=== PATIENT | male | born 1955 | race Caucasian/White ===

== ENCOUNTER → 2025-05-16 | Outpatient (CLI) | payer BC, SELFPAY ==
[2025-05-18 14:08] LABS: PSA, Free 0.54 ng/mL; PSA, Free % 10.7 % (.); PSA, Total Ultrasensitive 5.030 ng/mL (0.000-4.000)
== END | disposition home or self-care (01) ==
LOC: LAB 15:42
PROVIDERS: Referring Provider Urology; Visit Provider Urology
DX: R97.20 Elevated prostate specific antigen [PSA] (principal)
CPT/HCPCS: 36415; 84153; 84154

== ENCOUNTER → 2025-05-30 | Outpatient (CLI) | payer BC, SELFPAY ==
--- NOTE | 2025-05-30 13:01 | MRI_ITS ---
PROCEDURE: PELVIS W/WO CONTRAST, 05/30/2025 REASON FOR EXAM: ELEVATED PSA. Per technologist report, PSA was 5.030 on 05/16/2025. TECHNIQUE: Multisequence multiplanar MRI pelvis was performed with and without IV contrast. IV Contrast: 17 mL Clariscan COMPARISON: None FINDINGS: Variable overall mild motion limitation. Prostate size: 4.5 x 3.7 x 4.7 cm, estimated volume 40.7 mL. Per the above provided PSA, PSA density is 0.124 ng/mL. Transition zone: PI-RADS 2 findings. Peripheral Zone: Fairly prominent background changes of likely prostatitis making delineation of additional lesions somewhat challenging on T2: *Lesion 1: RIGHT posteromedial peripheral zone midgland to base, 1.4 cm (series 12, image 14-15). *T2 score: 4. *DWI score: 3. *DCE: Positive. *Overall PI-RADS: PI-RADS 4. *Extracapsular extension:No gross extracapsular extension, however, there is capsular abutment greater than 1 cm which increases the risk of occult early/microscopic extracapsular extension. Note that this includes the region of the RIGHT neurovascular bundle, which appears grossly unremarkable. *Lesion 2: LEFT mid posteromedial/posterolateral peripheral zone, 1.2 cm (series 12 images 17-18). *T2 score: 4. *DWI score: 3. *DCE: Positive. *Overall PI-RADS: PI-RADS 4. *Extracapsular extension:No gross extracapsular extension, however, there is capsular abutment greater than 1 cm which increases the risk of occult early/microscopic extracapsular extension. Note that this includes the region of the LEFT neurovascular bundle, which appears grossly unremarkable. *Lesion 3: RIGHT posteromedial/posterolateral peripheral zone apex, 1.0 cm (series 12, image 20). *T2 score: 4. *DWI score: 3. *DCE: Positive. *Overall PI-RADS: 4. *Extracapsular extension:No gross extracapsular extension, however, there is capsular abutment greater than 1 cm which increases the risk of occult early/microscopic extracapsular extension. Note that this includes the region of the RIGHT neurovascular bundle, which appears grossly unremarkable. Neurovascular bundles: As above. Seminal vesicles: Unremarkable. Bladder: Underdistended and suboptimally evaluated, grossly unremarkable. Lymph nodes: Unremarkable. Bones: No destructive or frankly suspicious bony lesions identified on nondedicated evaluation. Other: Small fat containing RIGHT inguinal hernia. Diverticulosis. Partially imaged lobulated cystic lesion in the LEFT scrotum spanning roughly 5.1 x 3.2 cm is partially imaged on most sequences but is favorable for a large epididymal cyst versus a loculated hydrocele. Smaller presumed RIGHT epididymal cyst measures 2.4 cm.. Partially imaged at least trace RIGHT hydrocele. LEFT inguinal hernia repair. MRI/Pelvis W/WO Contrast IMPRESSION: 1. Three peripheral zone PI-RADS 4 lesions, up to 1.4 cm on the RIGHT and 1.2 c m on the LEFT. 2. No gross extracapsular extension, however, there is capsular abutment of at least 1 cm by all three lesions which increases the risk of occult early/microscopic extracapsular extension. Note that this in cludes the region of the bilateral neurovascular bundles, which appear grossly unremarkable. 3. No overt pelvic lymphadenopathy. 4. Additional description as above. Reading Location: [id number]
== END | disposition home or self-care (01) ==
PROVIDERS: Referring Provider Urology; Visit Provider Urology
DX: R97.20 Elevated prostate specific antigen [PSA] (principal)
CPT/HCPCS: 72197; A9575; A4216

== ENCOUNTER → 2025-06-20 | Outpatient (CLI) | payer BC, SELFPAY ==
--- NOTE | 2025-06-20 13:00 | PROSBIL_PTH ---
PATIENT: ALYSSIA PARSON LOC: [facility] U#:[id number] AGE/SX: 69/M ROOM: RE06/20/[address]: Dr. Neeraj Rahman MD : [id number] BED: DIS: 06/20/2025 SPEC #: [id number] RECD: 06/20/25 15:03 STATUS: MEME RERoque #: [id number] DOUG: 06/20/25 13:[address]: Neeraj Rahman DEPT: SURGICAL PATHOLOGY RECD BY: Neo Best ENTERED: 06/21/25 09:09 SP TYPE: PROST BX SPENSER DR: Dr. Kevin Garcia, DO Tissues: A - PROSTATE RIGHT B - PROSTATE RIGHT C - PROSTATE RIGHT D - PROSTATE LEFT E - PROSTATE LEFT F - PROSTATE LEFT Procedures: PROSTATE BX HEADER OPERATION: Prostate biopsy PRE-OP DIAGNOSIS: Elevated PSA TISSUE SUBMITTED: A - Right apex, B - Right mid, C - Right base, D - Left apex, E - Left mid, F - Left base MICROSCOPIC DIAGNOSIS A. 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 B. Prostate, right, mid, biopsy: - Adenocarcinoma Mehama score 3+4=7 (25% pattern 4), involving one of two cores and 15% of the tissue. C. Prostate, right, base, biopsy: - Adenocarcinoma score 3+4=7 (25% pattern 4), involving two of two cores and 40% of the tissue. D. Prostate, left, apex, biopsy: - Focal atypical small acinar proliferation. - Focal acute inflammation. E. Prostate, left, mid, biopsy: - Benign prostate tissue. F. Prostate, left, base, biopsy: - Adenocarcinoma Naif score 3+3=6, involving two of two cores and 50% of the tissue. MICROSCOPIC DESCRIPTION Slides are reviewed. GROSS DESCRIPTION Received in 6 formalin containers labeled with the patient's name and date of . Designated as: A. RA are 2 myers tissue cores, 1.1 cm and 1.3 cm in length by 0.1 cm in diameter. Entirely submitted in 1 cassette. B. RM are 2 myers tissue cores each measuring 1.8 cm in length by 0.1 cm in diameter. Entirely submitted in 1 cassette. C. RB are 2 myers tissue cores, 1.4 cm and 1.8 cm in length by 0.1 cm in diameter. Entirely submitted in 1 cassette. D. LA are 2 myers tissue cores, 1.1 cm and 1.4 cm in length by 0.1 cm in diameter. Entirely submitted in 1 cassette. E. LM are 2 myers tissue cores, 1.3 cm and 1.6 cm in length by 0.1 cm in diameter. Entirely submitted in 1 cassette. F. LB are 2 myers tissue cores, 1.1 cm and 1.6 cm in length by 0.1 cm in diameter. Entirely submitted in 1 cassette. TN 06/20/2025 CPT:50523h0
== END | disposition home or self-care (01) ==
LOC: LABSPEC 15:19
PROVIDERS: Referring Provider Urology; Visit Provider Urology
DX: R97.20 Elevated prostate specific antigen [PSA] (principal)
CPT/HCPCS: 88305; G0416

== ENCOUNTER → 2025-07-11 | Outpatient (CLI) | payer BC, SELFPAY ==
--- NOTE | 2025-07-11 08:15 | NM_ITS ---
PROCEDURE: BONE SCAN WHOLE BODY 07/11/2025 REASON FOR EXAM: PROSTATE CA TECHNIQUE: Procedure Code: NMBO Modality: NM Procedure: BONE SCAN WHOLE BODY Single delayed phase imaging of the whole-body after radiopharmaceutical administration . RADIOPHARMACEUTICAL: 25.1 mCi Technetium-99m MDP IV COMPARISON: None. FINDINGS: Foci of increased radiotracer activity are noted in the medial aspect of the right knee, both wrists, a couple of small foci of increased radiotracer activity in both feet. These findings are likely related to degenerative inflammation. The remainder of the distribution of radiotracer activity appears to be physiologic in nature. NM/Bone Scan Whole Body IMPRESSION: Foci of increased radiotracer activity in the right knee, both wrists, and both feet, likely related to degenerative inflammation. No MR evidence of focal radiotracer activity to suggest osseous metastases. Reading Location: [id number]
== END | disposition home or self-care (01) ==
PROVIDERS: Referring Provider Urology; Visit Provider Urology
DX: C61 Malignant neoplasm of prostate (principal)
CPT/HCPCS: 78306; A9503